=== PATIENT | female | born 1955 | race Caucasian/White ===

== ENCOUNTER → 2024-01-27 07:37 | Outpatient (REF) | payer MEDICARE, OTHER, SELFPAY | LOC: WDC 07:37 | PROVIDERS: ATTENDING PHYSICIAN Surgery; FAMILY PHYSICIAN Internal Medicine | DX: Z12.31 Encounter for screening mammogram for malignant neoplasm of breast (principal) | CPT/HCPCS: 77063; 77067 ==

== ENCOUNTER → 2024-02-08 08:42 | Outpatient (REF) | payer MEDICARE, OTHER, SELFPAY | LOC: WDC 08:42 | PROVIDERS: ATTENDING PHYSICIAN Surgery; FAMILY PHYSICIAN Internal Medicine | DX: R92.2 Inconclusive mammogram (principal) | CPT/HCPCS: 76641 ==

== ENCOUNTER → 2024-02-22 08:20 | Outpatient (REF) | payer MEDICARE, OTHER, SELFPAY | LOC: RAD 08:20 | PROVIDERS: ATTENDING PHYSICIAN Surgery; FAMILY PHYSICIAN Internal Medicine; REFERRING PHYSICIAN Internal Medicine | DX: M81.0 Age-related osteoporosis without current pathological fracture (principal) | CPT/HCPCS: 77080 ==

== ENCOUNTER → 2024-03-15 11:16 | Outpatient (REF) | payer MEDICARE, OTHER, SELFPAY | LOC: RAD 11:16 | PROVIDERS: ATTENDING PHYSICIAN Internal Medicine | DX: Z87.891 Personal history of nicotine dependence (principal) | CPT/HCPCS: 71271 ==

== ENCOUNTER → 2025-01-31 08:13 | Outpatient (REF) | payer MEDICARE, OTHER, SELFPAY | LOC: WDC 08:13 | PROVIDERS: ATTENDING PHYSICIAN Surgery; FAMILY PHYSICIAN Internal Medicine | DX: Z12.31 Encounter for screening mammogram for malignant neoplasm of breast (principal) | CPT/HCPCS: 77063; 77067 ==

== ENCOUNTER → 2025-03-22 09:38 | Outpatient (REF) | payer MEDICARE, OTHER, SELFPAY | LOC: HWRAD 09:38 | PROVIDERS: ATTENDING PHYSICIAN Internal Medicine | DX: Z87.891 Personal history of nicotine dependence (principal) | CPT/HCPCS: 71271 ==

== ENCOUNTER → 2025-04-17 08:36 | Outpatient (REF) | payer MEDICARE, OTHER, SELFPAY | LOC: WDC 08:36 | PROVIDERS: ATTENDING PHYSICIAN Surgery; FAMILY PHYSICIAN Internal Medicine | DX: R92.2 Inconclusive mammogram (principal); Z85.3 Personal history of malignant neoplasm of breast; C50.412 Malignant neoplasm of upper-outer quadrant of left female breast; Z17.0 Estrogen receptor positive status [ER+] | CPT/HCPCS: 76641 ==